=== PATIENT | female | born 1990 | race Two or more races ===

== ENCOUNTER → 2017-08-21 | Emergency (ER) | payer OTHER ==
[~2017-08-21] VITALS: Ht 165.1 cm; Wt 96.2 kg
[~2017-08-21] MED LIST: CAPACET CAPSUL1 EACH PO; FOLIC ACID0.4 MG PO; LOSARTAN POTASS25 MG PO; NAPROXEN250 MG PO
== END | disposition home or self-care (01) ==
LOC: ER 19:36
DX: M25.562 Pain in left knee (principal); M25.561 Pain in right knee

== ENCOUNTER 2020-04-08 15:29 | Emergency (ER) | payer OTHER ==
[~2020-04-08] VITALS: Ht 165.1 cm; Wt 98.0 kg
[2020-04-08] MEDS ORDERED: METFORMIN HCL500 M2 (16:16)
[2020-04-08] MEDS ORDERED: LOVAZA1 GM (16:16)
== END 2020-04-08 20:10 | disposition home or self-care (01) ==
LOC: ER 15:29
DX: R39.15 Urgency of urination (principal); R10.31 Right lower quadrant pain

== ENCOUNTER 2021-04-18 11:10 | Emergency (ER) | payer OTHER ==
[~2021-04-18] VITALS: Ht 165.1 cm; Wt 99.8 kg
[~2021-04-18 11:10] MED LIST changes: +LOVAZA1 GM; +METFORMIN HCL500 M2
[2021-04-18] MEDS ORDERED: DIURETICO (11:29)
== END 2021-04-18 14:55 | disposition home or self-care (01) ==
LOC: ER 11:10
DX: S09.8XXA Other specified injuries of head, initial encounter (principal); S79.912A Unspecified injury of left hip, initial encounter; S69.91XA Unspecified injury of right wrist, hand and finger(s), initial encounter; M54.2 Cervicalgia; Y92.019 Unspecified place in single-family (private) house as the place of occurrence of the external cause; X58.XXXA Exposure to other specified factors, initial encounter; I10 Essential (primary) hypertension

== ENCOUNTER 2021-09-21 20:58 | Emergency (ER) | payer OTHER ==
[~2021-09-21] VITALS: Ht 172.7 cm; Wt 75.3 kg
[~2021-09-21 20:58] MED LIST changes: +DIURETICO
[2021-09-22] MEDS ORDERED: KETO10TA2 PO (03:02)
[2021-09-22] MEDS ORDERED: TAMS0.4C PO (03:02)
[2021-09-22] MEDS ORDERED: BACTRIM DS TAB1 EACH PO (03:02)
== END 2021-09-22 03:07 | disposition home or self-care (01) ==
LOC: ER 20:58
DX: N20.1 Calculus of ureter (principal); N39.0 Urinary tract infection, site not specified; I10 Essential (primary) hypertension

== ENCOUNTER 2024-05-20 13:03 | Emergency (ER) | payer OTHER ==
[~2024-05-20] VITALS: Ht 165.1 cm; Wt 98.4 kg
[~2024-05-20 13:03] MED LIST changes: +BACTRIM DS TAB1 EACH PO; +KETO10TA2 PO; +TAMS0.4C PO
[2024-05-20] MEDS ORDERED: NORVASC2.5 M1 PO (14:30)
[2024-05-20] MEDS ORDERED: LOSARTAN POTAS100 MG PO (14:30)
[2024-05-20] MEDS ORDERED: ORPHENADRINE CITRATE 30 MG/ML AMPUL IM ONE (14:45)
[2024-05-20] MEDS ORDERED: KETOROLAC TROMETHAMINE 60 MG VIAL IM ONE (14:45)
[2024-05-20] MEDS ORDERED: NEURONTIN300 MG PO (15:19)
[2024-05-20] MEDS ORDERED: KETO10TA2 PO (15:19)
[2024-05-20] MEDS ORDERED: NORFLEX100MG PO (15:19)
== END 2024-05-20 16:09 | disposition home or self-care (01) ==
LOC: ER 13:06
DX: M62.830 Muscle spasm of back (principal); I10 Essential (primary) hypertension

== ENCOUNTER 2024-08-19 08:40 | Inpatient (IN) | payer OTHER ==
[~2024-08-19] VITALS: Ht 165.1 cm; Wt 98.0 kg
[~2024-08-19 08:40] MED LIST changes: +LOSARTAN POTAS100 MG PO; +NEURONTIN300 MG PO; +NORFLEX100MG PO; +NORVASC2.5 M1 PO
[2024-08-19] MEDS ORDERED: ONDANSETRON HCL 2 MG/ML VIAL IV ONE (09:30)
[2024-08-19] MEDS ORDERED: FAMOtidine 10 MG/ML (4ML VIAL) IV ONE (09:30)
[2024-08-19] MEDS ORDERED: KETOROLAC TROMETHAMINE 30 MG VIAL IU ONE ×2 (09:30→14:30)
[2024-08-19] MEDS ORDERED: KETOROLAC TROMETHAMINE 30 MG VIAL ONE ×2 (09:40→14:34)
[2024-08-19] MEDS ORDERED: ONDANSETRON HCL 2 MG/ML VIAL ONE (09:40)
[2024-08-19] MEDS ORDERED: FAMOTIDINE/PF 20 MG/2 ML VIAL ONE (09:40)
[2024-08-19 10:17] LABS: HEMATOCRIT 40.8 % (36.0-45.00); HEMOGLOBIN 12.8 g/dL (12.0-15.00); MEAN CELL VOLUME 75.7 fL (80.00-100.00); MEAN CORPUSCULAR HEMOGLOBIN 23.8 pg (27.00-32.0); MEAN CORPUSCULAR HGB CONC 31.5 g/dl (32.0-36.0); PLATELET COUNT 331 K/uL (150-450); RED BLOOD COUNT 5.39 M/uL (4.00-6.00)
[2024-08-19 10:35] LABS: PH,URINE 7.5 (5.0-8.0); URINE APPEARANCE Clear; URINE BILIRRUBIN Negative (NEGATIVE); URINE BLOOD Negative; URINE COLOR Dark Yellow; URINE KETONE Trace (NEGATIVE); URINE LEUKOCYTE Trace; URINE NITRATE Negative
[2024-08-19 10:38] LABS: URINE BACTERIA 308.4 uL (0.0-1933); URINE EPITHELIAL CELLS 39.5 uL (0.0-38.8); URINE RBC 43.8 uL (0.0-20.8); URINE WBC 13.6 uL (0.0-23.2)
[2024-08-19 11:09] LABS: INR 0.97; PARTIAL THROMBOPLASTIN TIME 26.2 SECONDS (22.0-34.0); PROTHROMBIN TIME 10.6 SECONDS (9.0-11.5)
[2024-08-19 11:26] LABS: URINE CAST 0.44 uL (0.0-1.40); URINE CRYSTALS FEW /HPF; URINE GLUCOSE 100 MG/DL (NEGATIVE); URINE MUCUS SCANT; URINE PROTEIN 300 (NEGATIVE)
[2024-08-19 11:27] LABS: ALBUMIN 3.8 gm/dL (3.4-5.0); ALKALINE PHOSPHATASE 75 U/L (50-136); ALT/SGPT 35 U/L (12-78); ANION GAP 10 (10.0-20.0); AST/SGOT 22 U/L (15-37); BLOOD UREA NITROGEN 8 mg/dL (7-18); BUN CREA RATIO 8 (7.0-25.0); CALCIUM 9.5 mg/dL (8.5-10.1); CARBON DIOXIDE 27 mEq/L (21-32); CHLORIDE 108 mmol/L (98-107); CREATININE SERUM 1.01 mg/dL (0.55-1.02); GFR 62.74; GLOBULINA 4.7 G/DL (2.4-3.5); GLUCOSE FASTING 137 mg/dL (65-100); OSMOLALITY SERUM 282 MOSM/KG (275-295); POTASSIUM 3.56 mEq/L (3.5-5.1); SODIUM 141 mmol/L (136-145); TOTAL PROTEIN 8.5 gm/dL (6.4-8.2)
[2024-08-19 11:31] LABS: HCG QUANTITATIVE < 1 mUI/mL (1-3)
[2024-08-19] MEDS ORDERED: CIPROFLOXACIN IN 5 % DEXTROSE 400 MG/200 ML PIGGYBAG IV ONE ×2 (13:48→14:00)
[2024-08-19 15:27] LABS: RED CELL DISTRIBUTION WIDTH 29.1 % (11.5-14.5)
[2024-08-19] MEDS ORDERED: ONDANSETRON HCL 4 MG in 0.9 % SODIUM CHLORIDE 50 ML IV PRN (17:30)
[2024-08-19] MEDS ORDERED: ACETAMINOPHEN 325 MG TABLET PO PRN (17:30)
[2024-08-19] MEDS ORDERED: 0.9 % SODIUM CHLORIDE 1,000 ML IV SCH (17:30)
[2024-08-19] MEDS ORDERED: hydrALAZINE HCL 20 MG VIAL IV PRN (17:45)
[2024-08-19] MEDS ORDERED: METRONIDAZOLE/SODIUM CHLORIDE 100 ML IV SCH (21:00)
[2024-08-20 01:39] VITALS: BP 146/87; O2SAT 97
[2024-08-20] MEDS ORDERED: CIPROFLOXACIN IN 5 % DEXTROSE 200 ML IV SCH (02:00)
[2024-08-20] MEDS ORDERED: FAMOTIDINE/PF 20 MG/2 ML VIAL IV SCH (09:00)
[2024-08-20] MEDS ORDERED: SPIRONOLACTONE 50 MG TABLET PO SCH (09:00)
[2024-08-20] MEDS ORDERED: LOSARTAN POTASSIUM 100 MG TABLET PO SCH (09:00)
[2024-08-20] MEDS ORDERED: AMLODIPINE BESYLATE 10 MG TABLET PO SCH (09:00)
[2024-08-20] MEDS ORDERED: HYDROCHLOROTHIAZIDE 12.5 MG CAPSULE PO SCH (09:00)
[2024-08-20 09:29] VITALS: BP 130/70; O2SAT 98
[2024-08-20] MEDS ORDERED: ACETAMINOPHEN 500 MG GEL..CAP PO PRN (09:30)
[2024-08-20] MEDS ORDERED: ORPHENADRINE CITRATE 100 MG TABLET PO STA (14:40)
[2024-08-20] MEDS ORDERED: METOPROLOL SUCCINATE 50 MG TAB.SR.24H PO SCH (17:00)
[2024-08-20 19:13] VITALS: BP 145/86
[2024-08-20] MEDS ORDERED: DOXAZOSIN MESYLATE 2 MG TABLET PO SCH (21:00)
[2024-08-20] MEDS ORDERED: GABAPENTIN 600 MG TABLET PO SCH (21:00)
[2024-08-21 02:37] VITALS: BP 105/50; O2SAT 97
[2024-08-21 08:55] VITALS: BP 110/68; O2SAT 99
[2024-08-21] MEDS ORDERED: ORPHENADRINE CITRATE 100 MG TABLET PO SCH (09:00)
[2024-08-21 17:00] VITALS: BP 149/78; O2SAT 99
[2024-08-22 03:02] VITALS: BP 119/67; O2SAT 96
[2024-08-22 08:59] VITALS: BP 143/79
[2024-08-22 09:12] LABS: HEMATOCRIT 30.1 % (36.0-45.00); MEAN CELL VOLUME 76.5 fL (80.00-100.00); MEAN CORPUSCULAR HGB CONC 31.9 g/dl (32.0-36.0); PLATELET COUNT 209 K/uL (150-450); RED BLOOD COUNT 3.94 M/uL (4.00-6.00)
[2024-08-22 09:13] LABS: HEMOGLOBIN 9.6 g/dL (12.0-15.00); MEAN CORPUSCULAR HEMOGLOBIN 24.3 pg (27.00-32.0)
[2024-08-22 09:19] LABS: ERYTHROCYTE SEDIMENTATION RATE 49 mm/hr
[2024-08-22 10:12] LABS: ALBUMIN 3.2 gm/dL (3.4-5.0); BILIRUBIN TOTAL 0.27 mg/dL (0.3-1.2); CALCIUM 8.3 mg/dL (8.5-10.1); CREATININE SERUM 0.7 mg/dL (0.55-1.02); GFR 95.79; GLOBULINA 3.4 G/DL (2.4-3.5); POTASSIUM 3.56 mEq/L (3.5-5.1); TOTAL PROTEIN 6.6 gm/dL (6.4-8.2)
[2024-08-22 10:13] LABS: C-REACTIVE PROTEIN 1.11 MG/DL (0.00-0.29)
[2024-08-22 18:46] VITALS: BP 162/92
[2024-08-22] MEDS ORDERED: PEPCID AC20 MG PO (19:35)
[2024-08-22] MEDS ORDERED: INTESTINEX680 M2 PO (19:35)
[2024-08-22] MEDS ORDERED: METRONIDAZOLE500 MG PO (19:35)
[2024-08-22] MEDS ORDERED: CIPRO500 MG PO (19:35)
== END 2024-08-22 19:50 | disposition home or self-care (01) | DRG 392 ==
LOC: ER 08:42 → MEDJ 18:55
PROVIDERS: General Practice; ADMIT Internal Medicine; ATTEND Internal Medicine
PROC: BW21YZZ Computerized Tomography (CT Scan) of Abdomen and Pelvis using Other Contrast (ICD-10-PCS; principal; 2024-08-19)
DX: K52.9 Noninfective gastroenteritis and colitis, unspecified (principal); R18.8 Other ascites; E86.0 Dehydration; M54.50 Low back pain, unspecified; D64.89 Other specified anemias; R73.03 Prediabetes; I10 Essential (primary) hypertension